=== PATIENT | female | born 1975 | race Native Hawaiian/Other Pacific Islander ===

== ENCOUNTER 2019-01-22 11:26 | Emergency (ER) | payer OTHER ==
[~2019-01-22] VITALS: Ht 167.6 cm; Wt 122.5 kg
[2019-01-22 11:40] VITALS: TEMP 98.5
[2019-01-22] MEDS ORDERED: FLUOXETINE40 MG PO (12:07)
[2019-01-22] MEDS ORDERED: METF500T PO (12:07)
[2019-01-22] MEDS ORDERED: LISI20TA11 PO (12:08)
[2019-01-22] MEDS ORDERED: ROPINIROLE0.5 MG PO (12:08)
[2019-01-22] MEDS ORDERED: BASAGLAR K100 UNIT/M SC (12:08)
[2019-01-22 15:30] VITALS: BP 121/88
== END 2019-01-22 16:35 | disposition home or self-care (01) ==
LOC: ED 11:26
DX: R10.30 Lower abdominal pain, unspecified (principal); R11.2 Nausea with vomiting, unspecified
CPT/HCPCS: 99282

== ENCOUNTER 2019-01-28 01:50 | Emergency (ER) | payer OTHER ==
[~2019-01-28] VITALS: Ht 167.6 cm; Wt 122.5 kg
[~2019-01-28 01:50] MED LIST: BASAGLAR K100 UNIT/M SC; FLUOXETINE40 MG PO; LISI20TA11 PO; METF500T PO; ROPINIROLE0.5 MG PO
[2019-01-28 02:05] VITALS: BP 134/86; TEMP 97.7
== END 2019-01-28 02:55 | disposition home or self-care (01) ==
LOC: ED 01:50
DX: R11.2 Nausea with vomiting, unspecified (principal); R10.30 Lower abdominal pain, unspecified; R30.0 Dysuria
CPT/HCPCS: 99281